=== PATIENT | female | born 1955 | race Caucasian/White ===

== ENCOUNTER 2016-07-27 11:13 | Outpatient (CLI) | payer BC ==
--- NOTE | 2016-07-27 12:17 | DIAGNOSTIC IMAGING REPORT ---
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 COMPARISON: None. 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 No evidence of an acute process or fracture. Neural foramina are normal. IMPRESSION: 1. 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
== END 2016-07-27 23:00 | disposition home or self-care (01) ==
LOC: XR SRH 11:13
DX: M47.812 Spondylosis without myelopathy or radiculopathy, cervical region (principal)